=== PATIENT | female | born 1955 | race African-American/Black ===

== ENCOUNTER → 2016-10-20 | Outpatient (CLI) | payer BC ==
[~2016-10-20] MED LIST: TYLENOL PO; VITAMIN D5000 UNIT PO; WOMEN'S VITAMIN PO; ZOCOR20 MG PO
--- NOTE | ~2016-10-20 | MY11 ---
[facility] A Service [facility] RADIOLOGY TEXT RESULTS PATIENT: INDRA VELASCO LOCATION: [facility] : 53 UNIT #: [id number] AGE: [address]: Renate Diamond MD SEX: F ORDER DR: [id number] [facility] [address] [place], [place] [address] [id number] O MR#: [id number] Acc #: [id number] NAME: INDRA VELASCO : 1955 SEX: F STUDY DATE/TIME: 10/20/2016 11:41 UNIT: [facility] ROOM: STUDY DESCRIPTION: MY Mammogram Screening Dig Prabhjot Attending Physician: Renate Diamond M.D. Referring Physician: Renate Diamond M.D. Ordering Physician: Renate Diamond M.D. Primary Care Physician: Renate Diamond M.D. MEDICAL IMAGING REPORT This report is preliminary unless electronic signature is present EXAM Digital screening mammogram 10/20/2016. [facility] HISTORY 60-year-old woman no risk elevation. Annual screen. COMPARISON: Mammograms date to 10/09/2006 with most recent 10/19/2015. FINDINGS Digital imaging of each breast was completed utilizing a two-view examination of each breast in craniocaudal and mediolateral-oblique projections. Review and interpretation of digital mammograms include a second review in conjunction with FDA-approved CAD device. There is a normal parenchymal presentation bilaterally consistent with the patient's age. There are no breast masses imaged and no parenchymal asymmetry is visualized. There are no suspicious microcalcifications and I see no focal architectural disturbance. IMPRESSION Negative screening digital mammogram. One-year followup recommended. Patients over the age of 40 are entered into a reminder system with target due date for the next mammogram. A result letter will also be sent to the patient. BIRADS: 1 Negative Dictated by... Chi Haas M.D. [facility] A Service [facility] RADIOLOGY TEXT RESULTS PATIENT: INDRA VELASCO LOCATION: [facility] : 53 UNIT #: [id number] AGE: [address]: Renate Diamond MD SEX: F ORDER DR: THIS IS AN ELECTRONICALLY VERIFIED REPORT Chi Haas M.D. at 10/20/2016 2:53 PM SERGE/zakiya TD: 10/20/2016 14:38 JOB #: [id number] MEDICAL IMAGING REPORT Page 1 of 1 COPY
== END | disposition home or self-care (01) ==
LOC: CWCC 11:20
DX: Z12.31 Encounter for screening mammogram for malignant neoplasm of breast (principal)
CPT/HCPCS: G0202